=== PATIENT | female | born 1985 | race Caucasian/White ===

== ENCOUNTER 2023-12-28 10:25 | Emergency (ER) | payer MEDICAID ==
[~2023-12-28] VITALS: Ht 165.1 cm; Wt 70.0 kg
[2023-12-28 10:27] VITALS: O2SAT 98
[2023-12-28 11:58] VITALS: BP 157/99; PULSE 68; RESP 22; TEMP 98.2
== END 2023-12-28 12:10 | disposition home or self-care (01) ==
LOC: ER 11:03
DX: R00.2 Palpitations (principal); F41.9 Anxiety disorder, unspecified
CPT/HCPCS: 93005; 99283